=== PATIENT | male | born 1980 | race Caucasian/White ===

== ENCOUNTER 2023-03-04 17:02 | Emergency (ER) | payer OTHER ==
[2023-03-04 17:18] VITALS: O2SAT 99
--- NOTE | 2023-03-04 17:50 | ERPHSYRPT ---
- History of Present Illness Source: patient, other () Exam Limitations: no limitations Patient Subjective Stated Complaint: Pt states "My eye was scratchy yesterday and last night it just got really red and is more itchy." Triage Nursing Assessment: Pt presented alert and oriented X 3, skin pwd. Pt ambulates with an upright steady gait, able to speak in clear full sentences pt anxious. Physician History: 42 yo WM w R eye drainage/matting/erythema x 1 day. Pt also complains of dental pain and L facial edema x 1 day also. His pain is minimal. He denies contact lens use/ocular trauma/foreign body/cough/coryza/visual impairment/fever. Timing/Duration: yesterday Location: right eye Severity: mild Apparent Injury: no Associated Symptoms: burning, itching, redness, matting, eyelid swelling, No foreign body sensation, No decreased vision, No blurred vision Visual Assistive Devices: None Chemical Exposure: No Trauma: No Welding Arc/Tanning Bed Exposure: No Allergies/Adverse Reactions: No Known Drug Allergies Allergy (Verified 03/04/23 17:18) Home Medications: Metoprolol Succinate 50 mg [Toprol Xl 50 MG] 50 mg PO BID 03/04/23 [History] Hx Tetanus, Diphtheria Vaccination/Date Given: No Hx Influenza Vaccination/Date Given: No Hx Pneumococcal Vaccination/Date Given: No Immunizations Up to Date: No Travel Risk - International Travel Have you traveled outside of the country in past 3 weeks: No - Coronavirus Screening Are you exhibiting any of the following symptoms?: No Close contact with a COVID-19 positive Pt in past 14-21 Days: No - Vaccine Status Have you recieved a Covid-19 vaccination: No - Review of Systems Constitutional: No Symptoms Eyes: No Symptoms, Discharge, Eye Redness, Itchy Ears, Nose, & Throat: No Symptoms Respiratory: No Symptoms Cardiac: No Symptoms Abdominal/Gastrointestinal: No Symptoms Genitourinary Symptoms: No Symptoms Musculoskeletal: No Symptoms Skin: No Symptoms Neurological: No Symptoms Psychological: No Symptoms Endocrine: No Symptoms Hematologic/Lymphatic: No Symptoms Immunological/Allergic: No Symptoms - Past Medical History Pertinent Past Medical History: Yes Neurological History: Migraines ENT History: No Pertinent History Cardiac History: Hypertension Respiratory History: No Pertinent History Endocrine Medical History: No Pertinent History Musculoskeletal History: No Pertinent History GI Medical History: GERD History: Renal Disease Psycho-Social History: No Pertinent History Male Reproductive Disorders: No Pertinent History Other Medical History: renal disease - Past Surgical History Past Surgical History: Yes Other Surgical History: appi. kidney stones - Social History Smoking Status: Current every day smoker How long have you smoked: 25 years Exposure to second hand smoke: Yes Drug Use: marijuana Patient Lives Alone: No - Nursing Vital Signs Nursing Vital Signs: Initial Vital Signs Temperature 97.1 F 03/04/23 17:10 Pulse Rate 76 03/04/23 17:10 Respiratory Rate 20 03/04/23 17:10 Blood Pressure 163/114 03/04/23 17:10 O2 Sat by Pulse Oximetry 99 03/04/23 17:10 Pain Scale Pain Intensity 2 Hypertensive - Physical Exam General Appearance: no apparent distress Vision Acuity Right Eye: 20/30 Vision Acuity Left Eye: 20/50 Eye Exam: right eye: normal inspection, other (R eye erythematous w mild discharge/Mild eyelid edema/No obvious FB or abrasion), bilateral eye: PERRL, EO TX Ears, Nose, Throat Exam: TMs normal, pharynx normal, other (L frontal tooth TTP/Mild L facial edema/Good airway) Neck Exam: normal inspection, non-tender, supple, full range of motion, No meningismus, No mass, No Brudzinski, No Kernig's, No carotid bruit Respiratory Exam: normal breath sounds, lungs clear, airway intact, No respiratory distress Cardiovascular Exam: regular rate/rhythm, normal heart sounds, normal peripheral pulses, capillary refill <2 sec, No murmur Gastrointestinal Exam: soft, normal bowel sounds, No tenderness Extremity Exam: normal inspection, normal range of motion Neurologic: alert, oriented x 3, cooperative, wetlands technician II-XII nml as tested, normal mood/affect, nml cerebellar function, nml station & gait, sensation nml Skin Exam: normal color, warm, dry, No rash Lymphatic: No adenopathy SpO2 Interpretation: normal SpO2: 99 O2 Delivery: Room Air - Course Nursing assessment & vital signs reviewed: Yes - Progress Progress: improved Progress Note: 03/04/23 22:28 Nursing note and vital signs reviewed No food or housing insecurities noted Additional history per Pt most likely has R conjunctivitis wo evidence of corneal abrasion/FB. L facial pain/mild edema most likely due to abscessed tooth. Counseled pt/family regarding: diagnosis, need for follow-up Medical Desision Making - Independent Historian Additional History obtained from: Spouse - Risk of complications The pt has a mod risk of morbidity or mortality based on: Need for prescription drug management - Departure Departure Disposition: Home Clinical Impression: Right conjunctivitis, Dental abscess Condition: Stable Critical Care Time: No Referrals: CONRAD VIRAMONTES [Primary Care Provider] - Follow up/PCP as directed Instructions: Conjunctivitis (Pinkeye), Tooth Abscess ED Additional Instructions: Ciloxan 2drops right eye four times a day for 5 days Augmentin twice a day for 10 days Follow up with your family MD and dentist on Tuesday Return to ER for worsening of condition Prescriptions: Amox Tr/Potass Clav. 875 mg [Augmentin 875-125 Tablet] 875 mg PO BID 10 Days #20 tablet Ciprofloxacin HCl [Ciloxan] 2 drops OP QID #5 ml
[2023-03-04 18:09] VITALS: BP 148/95; PULSE 86
== END 2023-03-04 18:08 | disposition home or self-care (01) ==
LOC: ED 17:02
DX: H10.9 Unspecified conjunctivitis (principal); K04.7 Periapical abscess without sinus; K08.89 Other specified disorders of teeth and supporting structures; R22.0 Localized swelling, mass and lump, head; I10 Essential (primary) hypertension; Z79.899 Other long term (current) drug therapy; Z28.310 Unvaccinated for COVID-19; Z72.0 Tobacco use
CPT/HCPCS: 99281

== ENCOUNTER 2025-10-01 12:58 | Emergency (ER) | payer MEDICAID ==
[2025-10-01 13:17] VITALS: TEMP 99.8
[2025-10-01] MEDS ORDERED: Fluor-I-Strip/Ful-Flo OP ONE (13:23)
[2025-10-01] MEDS ORDERED: TETRACAINE 0.5% STERI-UNIT SOL OP ONE (13:23)
--- NOTE | 2025-10-01 13:57 | ERPHSYRPT ---
- History of Present Illness Time Seen by Provider: 10/01/25 13:01 Source: patient Patient Subjective Stated Complaint: pt got a piece of slag (iron, something from welding) in his eye a couple of days ago and his eye continues to get worse with pain and light sensitivity Triage Nursing Assessment: Pt was brought to the ER by his friends, hypertensive which pt states it is always extremely high, pt used to take pills for it but doesn't anymore and he has been diagnosed with kidney cancer, rates pain as 6/10, pulses bounding, skin n/w/d, denies chest pain, no difficulty breathing, right eye red and tears, doesn't appear to be in any distress Physician History: This is a 45-year-old male who was grinding metal 3 days ago and felt a foreign body on his right eye. He has been rubbing it since. Patient of note has a history of kidney cancer with chronic hypertension for which she is mostly taking medication but he states that he does not take them. He states they have had difficulty controlling his blood pressure in the past and today's elevated blood pressure is normal for him. No headache. No focal neurologic changes. No visual acuity changes. Allergies/Adverse Reactions: No Known Drug Allergies Allergy (Verified 10/01/25 13:16) Hx Tetanus, Diphtheria Vaccination/Date Given: No Hx Influenza Vaccination/Date Given: No Hx Pneumococcal Vaccination/Date Given: No Travel Risk - International Travel Have you traveled outside of the country in past 3 weeks: No - Emerging Infectious Disease Are you exhibiting symptoms associated with any current EIDs: No - Review of Systems All Other Systems: Reviewed and Negative (As per HPI otherwise negative) - Past Medical History Pertinent Past Medical History: Yes Neurological History: Migraines ENT History: No Pertinent History Cardiac History: Hypertension Respiratory History: No Pertinent History Endocrine Medical History: No Pertinent History Musculoskeletal History: No Pertinent History GI Medical History: GERD History: Kidney Cancer, Renal Disease Psycho-Social History: No Pertinent History Male Reproductive Disorders: No Pertinent History Other Medical History: renal disease - Past Surgical History Past Surgical History: Yes Gastrointestinal: Appendectomy Genitourinary: Other Other Surgical History: 30+ kidney stones. dual neph tubes. ureter stents - Social History Smoking Status: Current every day smoker How long have you smoked: 25 years Exposure to second hand smoke: Yes Drug Use: none - Social Determinants of Health Will the patient participate in the screening: Yes Do you worry about a steady place to live?: No Do you have any problems with any of the following?: No known problems In the past 12 months,have you had to go without utilities?: No Transportation Issues: No Has anyone in your support network made you feel unsafe?: No Have you or anyone in your house had to go w/o enough food: No - Nursing Vital Signs Nursing Vital Signs: Initial Vital Signs Temperature 99.8 F 10/01/25 13:05 Pulse Rate 99 H 10/01/25 13:05 Blood Pressure 221/158 10/01/25 13:05 O2 Sat by Pulse Oximetry 99 10/01/25 13:05 Pain Scale Pain Intensity 4 - Physical Exam SpO2: 99 Comments: 10/01/25 13:55 General: Well-nourished well-developed. No apparent distress. HEENT: Normocephalic atraumatic no obvious facial or neck deformity or injury. Pupils equal reactive round to light. Visual acuity 20/30 right and left eye without corrective lenses. Fluorescein without injection. Patient has noted foreign body at the 9 o'clock position over the right iris. Negative Seidels sign. Neck: Supple. No deformity or mass noted. CV: RRR NL Perfusion. No edema Resp: No Respiratory distress or adventitious breath sounds Abd: ND SNT MSK: No deformity or TTP Neuro: Alert and [place] x4. No gross focal neurologic changes Psych: No SI, HI or grave disability Ordered Tests: Active Orders 24 hr Category Date Time Status CBC W DIFF Stat Lab 10/01/25 14:00 Completed CMP Stat Lab 10/01/25 14:00 Completed PT INR [PROTIME WITH INR] Stat Lab 10/01/25 14:00 Completed PTT Stat Lab 10/01/25 14:00 Completed Medication Summary Discontinued Medications Generic Name Dose Route Start Last Admin Trade Name Freq PRN Reason Stop Dose Admin Fluorescein Sodium Confirm 10/01/25 13:23 Fluorescein Sodium 1 Mg/Strip Strip Administered 10/01/25 13:24 Dose 1 mg OP .STK-MED ONE Fluorescein Sodium 1 mg 10/01/25 15:03 10/01/25 15:04 Fluorescein Sodium 1 Mg/Strip Strip OP 10/01/25 15:04 1 mg STAT ONE Administration Hydralazine HCl 20 mg 10/01/25 13:53 10/01/25 14:07 Hydralazine Hcl 20 Mg/Ml Vial IV 10/01/25 13:54 20 mg STAT ONE Administration Hydralazine HCl Confirm 10/01/25 14:06 Hydralazine Hcl 20 Mg/Ml Vial Administered 10/01/25 14:07 Dose 20 mg .ROUTE .STK-MED ONE Tetracaine HCl Confirm 10/01/25 13:23 Tetracaine Hcl/Pf 4 Ml Bottle Administered 10/01/25 13:24 Dose 4 ml OP .STK-MED ONE Tetracaine HCl 4 ml 10/01/25 15:03 10/01/25 15:04 Tetracaine Hcl/Pf 4 Ml Bottle OP 10/01/25 15:04 4 ml STAT STA Administration Lab/Rad Data: Laboratory Result Diagrams 10/01/25 14:00 10/01/25 14:00 Laboratory Results 10/01/25 10/01/25 10/01/25 Range/Units 14:00 14:00 14:00 WBC 7.8 (4.23-9.07) x10^3/uL RBC 4.94 (4.63-6.08) x10^6/uL Hgb 14.7 (13.7-17.5) g/dL Hct 43.3 (40.1-51.0) % MCV 87.7 (79.0-92.2) fL MCH 29.8 (25.7-32.2) pg MCHC 33.9 (32.3-36.5) g/dL RDW 13.7 (11.6-14.4) % Plt Count 161 L (163-337) x10^3/uL MPV 9.7 (9.4-12.4) fL Gran % 70.2 H (34.0-67.9) % Immature Gran % (Auto) 0.4 (0.001-0.429) % Nucleat RBC Rel Count 0.0 (0.00-0.2) % Eos # (Auto) 0.05 (0.04-0.54) x10^3/uL Immature Gran # (Auto) 0.03 (0.001-0.031) x10^3u/L Absolute Lymphs (auto) 1.46 (1.32-3.57) x10^3/uL Absolute Monos (auto) 0.75 (0.30-0.82) x10^3/uL Absolute Nucleated RBC 0.00 (0.00-0.012) x10^3u/L Lymphocytes % 18.7 L (21.8-53.1) % Monocytes % 9.6 (5.3-12.2) % Eosinophils % 0.6 L (0.8-7.0) % Basophils % 0.5 (0.2-1.2) % Absolute Granulocytes 5.47 H (1.78-5.38) x10^3/uL Basophils # 0.04 (0.01-0.08) x10^3/uL PT 10.8 (9.4-12.5) SECONDS INR 0.96 (0.8-3.0) APTT 24.0 L (25.1-36.5) SECONDS Sodium 138 (135-145) mmol/L Potassium 3.1 L (3.5-5.1) mmol/L Chloride 105 (98-107) mmol/L Carbon Dioxide 25 (22-30) mmol/L Anion Gap 11.6 (5-15) MEQ/L BUN 15 (9-20) mg/dL Creatinine 1.63 H (0.66-1.25) mg/dL Estimated GFR 52.6 ML/MIN Glucose 108 H (74-106) mg/dL Calcium 8.9 (8.4-10.2) mg/dL Total Bilirubin 0.70 (0.2-1.3) mg/dL AST 26 (17-59) U/L ALT 20 (0-50) U/L Alkaline Phosphatase 83 (38-126) U/L Serum Total Protein 7.7 (6.3-8.2) g/dL Albumin 4.4 (3.5-5.0) g/dL - Progress Progress Note: 10/01/25 13:56 No slit-lamp available. With fluorescein able to see no evident globe rupture. Attempt with 18-gauge needle and a bur unable to remove what is a small metallic evident foreign body in the right eye. Will need to control patient's blood pressure as well as check baseline labs as patient would likely need transferred to another facility with ophthalmology ability to remove foreign body in a controlled setting. 10/01/25 15:18 I was able to discuss the patient's case after multiple phone calls across the region with Dr. Salinas De La Rosa ophthalmology in [facility]. He stated because the patient has had this in his eye for several days there is no urgency and he will see him at 1230 tomorrow. I obtained directions, phone number and point of contact. I go back to patient's room and he is apparently left without telling anyone. He had an IV in his arm as he has very labile blood pressure. We were intending to prescribe antibiotics for his eye. We have been trying to contact him now for 2 hours and he cannot be reached. We are sending police to his home. We do want him to see ophthalmology with referral provided, steel pickler antibiotic, return to have his blood pressure treatment completed. Patient has hypertensive urgency and is at high risk for great debility up to and including for uncontrolled hypertension as well as failure to comply with treatment for his acute eye injury. - Departure Departure Disposition: Home Clinical Impression: Hypertensive urgency, Left against medical advice Foreign body of eye, external, right Qualifiers: Encounter type: initial encounter Qualified Code(s): T15.91XA - Foreign body on external eye, part unspecified, right eye, initial encounter Condition: Fair Critical Care Time: No Referrals: CONRAD VIRAMONTES [Primary Care Provider, [facility]] - Follow up/PCP as directed Instructions: Foreign Body in Eye (DC), Hypertension Additional Instructions: Patient eloped before treatment complete and consultation provided. Prescriptions: Erythromycin Base 3.5 gm [Erythromycin 3.5 GM OPHTH.] 3.5 gm OP 5XD 5 Days #1 Valsartan 320 mg PO DAILY #30 tablet
[2025-10-01 14:05] VITALS: BP 209/104; PULSE 86; RESP 14
[2025-10-01] MEDS ORDERED: APRESOLINE 20 MG/ML INJ ONE (14:06)
[2025-10-01 14:07] LABS: BASOPHIL % 0.5 % (0.2-1.2); Basophil (Absolute #) 0.04 x10^3/uL (0.01-0.08); Eosinophil (Absolute #) 0.05 x10^3/uL (0.04-0.54); Hematocrit 43.3 % (40.1-51.0); Hemoglobin 14.7 g/dL (13.7-17.5); IMMATURE GRAN # 0.03 x10^3u/L (0.001-0.031); IMMATURE GRAN % 0.4 % (0.001-0.429); Lymphocyte (Absolute #) 1.46 x10^3/uL (1.32-3.57); Mean Corpuscular Hemoglobin 29.8 pg (25.7-32.2); Mean Corpuscular Hgb Concent. 33.9 g/dL (32.3-36.5); Monocyte (Absolute #) 0.75 x10^3/uL (0.30-0.82); NUCLEATED RBC # 0.00 x10^3u/L (0.00-0.012); NUCLEATED RBC % 0.0 % (0.00-0.2); Platelet Count 161 x10^3/uL (163-337); Red Blood Count 4.94 x10^6/uL (4.63-6.08); White Blood Count 7.8 x10^3/uL (4.23-9.07)
[2025-10-01] MEDS: APRESOLINE 20 MG/ML INJ IV ONE (14:07)
[2025-10-01 14:23] LABS: Calcium 8.9 mg/dL (8.4-10.2); Carbon Dioxide 25.0 mmol/L (22-30); Creatinine 1 1.63 mg/dL (0.66-1.25); EST GLOMERULAR FILTRATION RATE 52.6 ML/MIN; Glucose 108.0 mg/dL (74-106); Potassium 3.1 mmol/L (3.5-5.1); SGOT/AST 26.0 U/L (17-59); SGPT/ALT 20.0 U/L (0-50); Total Protein 7.7 g/dL (6.3-8.2)
[2025-10-01 14:24] LABS: INR 0.96 (0.8-3.0); PROTIME 10.8 SECONDS (9.4-12.5); PTT 24.0 SECONDS (25.1-36.5)
[2025-10-01] MEDS: Fluor-I-Strip/Ful-Flo OP ONE (15:04)
[2025-10-01] MEDS: TETRACAINE 0.5% STERI-UNIT SOL OP STA (15:04)
[2025-10-01 15:28] VITALS: O2SAT 99
== END 2025-10-01 14:20 | disposition left against medical advice (07) ==
LOC: ED 12:58
DX: T15.91XA Foreign body on external eye, part unspecified, right eye, initial encounter (principal); W44.D9XA Other magnetic metal objects entering into or through a natural orifice, initial encounter; I10 Essential (primary) hypertension; I16.0 Hypertensive urgency; Z72.0 Tobacco use